=== PATIENT | female | born 1950 | race Caucasian/White ===

== ENCOUNTER 2019-10-05 07:05 | Outpatient (CLI) | payer MEDICARE, OTHER ==
[2019-10-05 12:57] LABS: Hemoglobin 13.1 g/dL (12.0-16.0); Mean Corpuscular HGB CONC 32.7 g/dL (32.0-36.0); Mean Corpuscular Hemoglobin 28.8 pg (27.0-31.0); Mean Corpuscular Volume 88.3 fL (78.0-98.0); Mean Platelet Volume 8.9 fL (7.4-10.4); Platelet Count 233 thou/uL (130-400); Red Blood Cell (RBC) Count 4.53 mill/uL (4.20-5.40)
[2019-10-05 13:01] LABS: INR-International Normal Ratio 0.9; PTT 31.7 sec (22.9-36.1); Prothrombin Time 12.2 sec (12.0-14.7)
[2019-10-05 13:18] LABS: Anion Gap 13 mmol/L (10-20); BUN (Urea Nitrogen) 10 mg/dL (9.8-20.1); Calc. Creatinine Clearance 0 mL/min (70-130); Calcium 8.9 mg/dL (7.8-10.44); Carbon Dioxide 26 mmol/L (23-31); Chloride 105 mmol/L (98-107); Estimated GFR-MDRD 69; Glucose 95 mg/dL (80-115); Potassium 4.3 mmol/L (3.5-5.1); Sodium 140 mmol/L (136-145)
[2019-10-05 22:22] LABS: SARS-CoV-2 MS2 Positive; SARS-CoV-2 N Gene Negative; SARS-CoV-2 S Gene Negative; SARS-CoV-2 orf1ab Negative
== END 2019-10-05 07:06 | disposition home or self-care (01) ==
LOC: LABBT 07:05
PROVIDERS: ATTEND Surgery
DX: Z01.818 Encounter for other preprocedural examination (principal); Z11.59 Encounter for screening for other viral diseases; M54.12 Radiculopathy, cervical region; M48.02 Spinal stenosis, cervical region
CPT/HCPCS: 80048; 85027; 85610; 85730; 93005; U0003; 87635; 93010

== ENCOUNTER 2019-10-07 05:51 | Day surgery (SDC) | payer MEDICARE ==
[2019-10-05 11:18] VITALS: BMI 22.6
[2019-10-07] MEDS ORDERED: Thrombin 5000 UNITS/5 ML VIAL ONE (06:25)
[2019-10-07] MEDS ORDERED: Fentanyl 250 MCG/5 ML VIAL ONE (07:25)
[2019-10-07] MEDS ORDERED: SUGAMMADEX SODIUM 200 MG/2 ML VIAL ONE (07:25)
[2019-10-07] MEDS ORDERED: Milk Of Magnesia 30 ML UDCUP PO PRN (09:48)
[2019-10-07] MEDS ORDERED: Acetaminophen/Codeine 30-300mg Tablet PO PRN (09:48)
[2019-10-07] MEDS ORDERED: Acetaminophen 325 MG TAB PO PRN (09:48)
[2019-10-07] MEDS ORDERED: traMADol HCl 50 MG TAB PO PRN (09:48)
[2019-10-07] MEDS ORDERED: Morphine 2 MG/ML SYRINGE SLOW IVP PRN (09:48)
[2019-10-07] MEDS ORDERED: Ondansetron PF 4 MG/2 ML Vial IVP PRN (09:48)
[2019-10-07] MEDS ORDERED: Bisacodyl 10 MG SUPP PR PRN (09:48)
[2019-10-07] MEDS ORDERED: Fleet Enema 133 ML BOT PR PRN (09:48)
[2019-10-07] MEDS ORDERED: Mag-Al 1200 mg/1200 mg/30 ML UDCUP PO PRN (09:48)
[2019-10-07] MEDS ORDERED: Cyclobenzaprine 10 MG TAB PO PRN (09:50)
[2019-10-07] MEDS ORDERED: Morphine Sulfate 2 MG/ML SYRINGE SLOW IVP PRN (10:03)
[2019-10-07] MEDS ORDERED: PACU-Morphine 4MG/ML VIAL SLOW IVP PRN (10:03)
[2019-10-07] MEDS ORDERED: Promethazine HCl 25 MG/ML VIAL IM PRN (10:03)
[2019-10-07] MEDS ORDERED: Ondansetron HCl/PF 4 MG/2 ML Vial IVP PRN (10:03)
[2019-10-07] MEDS ORDERED: Promethazine HCl 25 MG/ML VIAL SLOW IVP PRN (10:03)
[2019-10-07] MEDS ORDERED: HYDROmorphone 2 MG/ML VIAL SLOW IVP PRN (10:03)
[2019-10-07] MEDS ORDERED: Fentanyl 100 MCG/2 ML VIAL ONE (10:18)
--- NOTE | 2019-10-07 13:26 | OP ---
DATE OF PROCEDURE: 10/07/2019 LOCATION: OR 11. SURGEON: Tayo Patton MD LABOR RELATIONS OFFICER: Vale Washington PA-C PREPROCEDURE DIAGNOSIS: Neck and arm pain with cervical stenosis. POSTPROCEDURE DIAGNOSIS: Neck and arm pain with cervical stenosis. PROCEDURES PERFORMED: 1. Anterior C4-C5 and C5-C6 diskectomies for decompression of spinal cord nerve roots. 2. Anterior cervical plate and screw fixation, C4-C5 and C5-C6. 3. Placement of interbody spacers for fusion, packed with local bone autograft obtained with same incision and allograft, C4-C5 and C5-C6. 4. Use of operative microscope for microdissection. DESCRIPTION OF PROCEDURE: After informed consent was obtained from the patient, the patient was brought to the OR. Proper patient, pause, and identification were carried out. She was placed under excellent general endotracheal anesthesia and positioned supine on the OR table. All appropriate points were padded. We identified right transverse marked that would allow for approach to C4, C5, C6 segments. This region was sterilely cleansed, prepared and draped. Proper patient, pause, and identification were carried out. We then proceeded lateral to the tracheoesophageal bundle medial to the right carotid sheath, identified the C4, C5 and C6 segments, prevertebral layer of deep cervical fascia, this was opened and dissected. Retractors placed. Localization film confirmed our area of interest, then performed distraction at C4-C5. An excellent diskectomy with decompression of spinal cord and nerve roots and then placed an interbody spacer, packed with local bone autograft obtained with same incision and allograft. We then did the same thing at C5-C6 following the release of distraction and then placement of distraction at C5-C6, placement of the interbody spacer, packed with graft. We had excellent decompression and common dural tube and nerve roots. Copious irrigation occurred throughout as did maximizing hemostasis. The wound was then closed in anatomic layers following the placement of a drain. Job ID: [id number]
[2019-10-07] MEDS ORDERED: Lidocaine 1% PF 5 ML VIAL ONE ×2 (13:32)
[2019-10-07] MEDS ORDERED: PROPOFOL 200 MG/20 ML VIAL ONE (13:32)
[2019-10-07] MEDS ORDERED: Rocuronium Bromide 10 MG/ML (10ML VIAL) ONE (13:32)
[2019-10-07] MEDS ORDERED: Dexamethasone 20 MG/5 ML VIAL ONE (13:32)
[2019-10-07] MEDS ORDERED: Ondansetron PF 4 MG/2 ML Vial ONE (13:32)
[2019-10-07] MEDS: Sodium Chloride 0.9% 1,000 ML IV SCH (13:40)
[2019-10-07] MEDS: CEFAZOLIN 2 GM in Premix Bag 1 BAG IVPB SCH ×2 (15:58→21:17)
[2019-10-07] MEDS: Gabapentin 300 MG CAP PO SCH ×2 (15:59→21:16)
[2019-10-07] MEDS ORDERED: Rosuvastatin 10 MG TAB PO SCH (21:00)
[2019-10-07] MEDS: tiZANidine HCl 4 MG TAB PO PRN (21:14)
[2019-10-08] MEDS: HYDROcodone/Acetaminophen 7.5/325 mg Tablet PO PRN ×2 (03:12→08:43)
[2019-10-08] MEDS: Sodium Chloride 0.9% 1,000 ML IV SCH ×2 (04:02→10:12)
[2019-10-08] MEDS: tiZANidine HCl 4 MG TAB PO PRN (06:45)
[2019-10-08] MEDS: Gabapentin 300 MG CAP PO SCH (08:42)
[2019-10-08] MEDS ORDERED: Fluticasone Propionate Nasal Spray 16 gm Bottle NASAL SCH (09:00)
[2019-10-08] MEDS ORDERED: Montelukast Sodium 10 mg Tablet PO SCH (09:00)
[2019-10-08 11:08] VITALS: BP 99/55; TEMP 98.4
--- NOTE | 2019-10-08 11:11 | PRG ---
DATE OF SERVICE: 10/08/2019 Ms. Gutierrez is postoperative day 1 from C4 through C6 ACDF. Her drain output was scant. We have removed it. She has had improvement in her neck and arm pain. She is mobilizing. She neurologically intact. She will be discharged. Job ID: [id number]
== END 2019-10-08 12:57 | disposition home or self-care (01) ==
LOC: SDC 05:51 → SURG B 09:48 → SDC 10-08 12:57
PROVIDERS: ATTEND Surgery
PROC: 0RG20A0 Fusion of 2 or more Cervical Vertebral Joints with Interbody Fusion Device, Anterior Approach, Anterior Column, Open Approach (ICD-10-PCS; principal; 2019-10-07)
PROC: 0RT30ZZ Resection of Cervical Vertebral Disc, Open Approach (ICD-10-PCS; 2019-10-07)
DX: M48.02 Spinal stenosis, cervical region (principal); M54.12 Radiculopathy, cervical region; E78.5 Hyperlipidemia, unspecified; Z79.51 Long term (current) use of inhaled steroids; Z79.899 Other long term (current) drug therapy; Z88.1 Allergy status to other antibiotic agents; Z88.8 Allergy status to other drugs, medicaments and biological substances
CPT/HCPCS: 20930; 20936; 22551; 22552; 22853 ×2; 76000; 82962; C1713; C1776; 36416; J0690; J1100; J2001; J2405; J2704; J3010